=== PATIENT | female | born 1980 | race African-American/Black ===

== ENCOUNTER 2019-03-08 10:36 | Emergency (ER) | payer MEDICAID ==
[~2019-03-08] VITALS: Ht 170.2 cm; Wt 85.0 kg
[2019-03-08] MEDS ORDERED: ACETAMINOPHEN WITH CODEINE 300/30MG TABLET PO ONE (11:30)
[2019-03-08 11:40] VITALS: BP 131/81
== END 2019-03-08 12:53 | disposition home or self-care (01) ==
LOC: ER 11:07
DX: M54.5 Low back pain (principal); M79.672 Pain in left foot; M79.671 Pain in right foot; W10.9XXA Fall (on) (from) unspecified stairs and steps, initial encounter; Y93.89 Activity, other specified; Y92.89 Other specified places as the place of occurrence of the external cause
CPT/HCPCS: 72131; 99284

== ENCOUNTER 2019-06-21 15:48 | Emergency (ER) | payer MEDICAID, OTHER ==
[~2019-06-21] VITALS: Ht 172.7 cm; Wt 101.0 kg
[2019-06-21] MEDS ORDERED: KETOROLAC 30MG/ML VIAL IV STA (16:24)
[2019-06-21] MEDS ORDERED: SODIUM CHLORIDE 0.9% 1,000 ML IV ONE (16:24)
[2019-06-21] MEDS ORDERED: ACETAMINOPHEN 325MG TABLET PO STA (16:24)
[2019-06-21] MEDS ORDERED: ONDANSETRON HCL 4MG/2ML INJ IV STA ×2 (16:24→18:30)
[2019-06-21 16:54] LABS: BASOPHILS % 0.4 % (0.0-2.0); EOSINOPHILS % 2.7 % (0.0-5.0); HEMATOCRIT. 34.9 % (36.0-48.0); HEMOGLOBIN. 11.7 g/dL (12.0-16.0); LYMPHOCYTES % 15.3 % (20.0-50.0); MEAN CORPUSCULAR HEMOGLOBIN 28.8 pg (28.0-32.0); MEAN CORPUSCULAR VOLUME 86.2 fL (81.0-99.0); MEAN PLATELET VOLUME 8.5 fl (7.4-10.4); NEUTROPHILS % 77.6 % (40.0-76.0); PLATELET 324 x1000/uL (130-400); RED BLOOD CELL COUNT 4.05 mill/uL (4.2-5.4); RED CELL DISTRIBUTION WIDTH 14.4 % (11.6-14.6)
[2019-06-21 17:00] LABS: CHLORIDE 106 mEq/L (98-107)
[2019-06-21 18:25] LABS: CLARITY URINE CLEAR (CLEAR); COLOR URINE YELLOW (YELLOW); KETONES URINE NEGATIVE (NEGATIVE); LEUKOCYTE ESTERASE URINE 2+ (NEGATIVE); NITRITE URINE NEGATIVE (NEGATIVE); OCCULT BLOOD URINE 1+ (NEGATIVE); PROTEIN URINE NEGATIVE (NEGATIVE); SPECIFIC GRAVITY URINE 1.015 (1.005-1.030); UROBILINOGEN URINE 0.2 E.U./dL (0.2-1.0)
[2019-06-21] MEDS ORDERED: MORPHINE SULFATE 4 MG/ML CPJ (NOT FOR IM USE) IV STA (18:30)
[2019-06-21 19:00] VITALS: BP 122/77
== END 2019-06-21 19:23 | disposition home or self-care (01) ==
LOC: ER 16:02
DX: R07.89 Other chest pain (principal); N30.00 Acute cystitis without hematuria; I10 Essential (primary) hypertension
CPT/HCPCS: 36415; 71045; 80053; 81003; 81025; 85025; 87040; 87804; 93005; 96361; 96374; 96375; 96376; 99284; J1885; J2270; J2405; J7030